=== PATIENT | female | born 1990 | race Caucasian/White ===

== ENCOUNTER 2021-06-20 13:25 | Emergency (ER) | payer SELFPAY ==
[~2021-06-20] VITALS: Ht 165.1 cm; Wt 55.3 kg
[2021-06-20 13:36] VITALS: BP 118/83
[2021-06-20] MEDS ORDERED: LORAZEPAM 0.5 MG TABLET PO ONE (14:30)
[2021-06-20] MEDS ORDERED: LORAZEPAM 0.5 MG TABLET ONE (14:31)
--- NOTE | 2021-06-20 14:32 | NUR ---
Patient eloped from facility. ER MD notified.
== END 2021-06-20 14:40 | disposition left against medical advice (07) ==
LOC: ER 13:29
DX: F41.9 Anxiety disorder, unspecified (principal); Z53.29 Procedure and treatment not carried out because of patient's decision for other reasons

== ENCOUNTER 2021-07-22 10:56 | Emergency (ER) | payer SELFPAY ==
--- NOTE | 2021-07-22 11:50 | NUR ---
PER ADMITTING, PT LEFT DOES NOT WANT TO BE SEEN ANYMORE. LEFT BEFORE BEING TRIAGED.
== END 2021-07-22 11:53 | disposition left against medical advice (07) ==
LOC: ER 10:56
DX: Z53.21 Procedure and treatment not carried out due to patient leaving prior to being seen by health care provider (principal); R07.89 Other chest pain

== ENCOUNTER 2021-07-26 09:57 | Emergency (ER) | payer SELFPAY ==
[~2021-07-26] VITALS: Ht 165.1 cm; Wt 55.3 kg
--- NOTE | 2021-07-26 10:16 | NUR ---
BIB FRIEND C/O ANXIETY ATTACK STARTED THIS MORNING. THE PATIENT IS ALERT AND ORIENTED X4. DENIES PAIN. IN ROOM AIR AND DENIES SOB. RESPIRATION REGULAR AND UNLABORED. WILL CONTINUE TO MONITOR THE PATIENT.
[2021-07-26] MEDS ORDERED: ONDANSETRON HCL/PF 4 MG/2 ML VIAL ONE (10:56)
[2021-07-26] MEDS ORDERED: LORAZEPAM INJ 2 MG/ML VIAL ONE (10:57)
[2021-07-26] MEDS: ONDANSETRON HCL/PF 4 MG/2 ML VIAL IV ONE (11:04)
[2021-07-26] MEDS: LORAZEPAM INJ 2 MG/ML VIAL IV ONE (11:04)
[2021-07-26 11:30] LABS: BASOPHILS # (AUTO) 0.1 K/uL (0.0-0.2); BASOPHILS % (AUTO) 0.5 % (0.0-2.0); EOSINOPHILS % (AUTO) 0.7 % (0.0-6.0); HEMATOCRIT 39 % (33-45); LYMPHOCYTES # (AUTO) 2.4 K/uL (0.8-4.8); LYMPHOCYTES % (AUTO) 15.3 % (20.0-44.0); MEAN CORPUSCULAR HGB CONC 34 g/dl (31.0-36.0); MEAN CORPUSCULAR VOLUME 88 fL (82-100); MONOCYTES # (AUTO) 0.8 K/uL (0.1-1.30); MONOCYTES % (AUTO) 4.8 % (2.0-12.0); NEUTROPHILS # (AUTO) 12.6 K/uL (1.8-8.9); NEUTROPHILS % (AUTO) 78.7 % (43.0-81.0); PLATELET COUNT (AUTO) 346 K/uL (150-450); RED BLOOD CELL COUNT(AUTO) 4.39 MIL/uL (4.0-5.2); WHITE BLOOD COUNT (AUTO) 16.1 K/uL (4.3-11.0)
[2021-07-26 11:34] LABS: BILIRUBIN,URINE NEGATIVE (NEGATIVE); COLOR,URINE YELLOW (YELLOW); LEUKOCYTE ESTERASE ,URINE NEGATIVE (NEGATIVE); NITRITE, URINE NEGATIVE (NEGATIVE); PH,URINE 7.5 (5.0-8.0); PROTEIN,URINE NEGATIVE (NEGATIVE); UGLUCOSE NEGATIVE (NEGATIVE); UROBILINOGEN,URINE 0.2 EU/dL (0.2)
--- NOTE | 2021-07-26 11:41 | NUR ---
Patient does not wish to proceed with medical care recommended by ( Lev ). Patient given information related to possible complications, up to and including , which could occur as a result of leaving the hospital at this time. Patient verbalizes understanding of risks involved due to leaving against medical advice. Patient has signed AMA form.IV removed. Catheter intact and site benign. Pressure and 4x4 applied to site. No bleeding noted.
[2021-07-26 11:44] VITALS: BP 132/72
[2021-07-26 11:49] LABS: BACTERIA,URINE Few /HPF (None Seen); RBC,URINE NONE SEEN /HPF (0-2); WBC,URINE 0-2 /HPF (0-3)
[2021-07-26 11:50] LABS: SQUAMOUS EPITHELIAL CELL,UR Few /HPF (None Seen)
[2021-07-26 11:51] LABS: CARBON DIOXIDE 23 mmol/L (21-32); CHLORIDE 103 mmol/L (98-107); CREATININE 0.8 mg/dL (0.6-1.3); GLUCOSE 101 mg/dL (74-106); POTASSIUM 3.3 mmol/L (3.5-5.1); SODIUM SERUM 135 mmol/L (136-145); UREA NITROGEN, BLOOD 14 mg/dL (7-18)
[2021-07-26 11:57] LABS: ACETAMINOPHEN < 2 ug/ml (10-30); ALANINE AMINOTRANSFERASE 23 U/L (12-78); ALBUMIN 4.2 g/dL (3.4-5.0); ALCOHOL, BLOOD < 3 mg/dL (0-0); ALKALINE PHOSPHATASE 88 U/L (46-116); ASPARTATE AMINOTRANSFERASE 15 U/L (15-37); BILIRUBIN,DIRECT 0.1 mg/dL (0.0-0.2); BILIRUBIN,TOTAL 0.3 mg/dL (0.2-1.0); LIPASE 66 U/L (73-393); TOTAL PROTEIN, SERUM 7.7 g/dL (6.4-8.2)
== END 2021-07-26 11:41 | disposition left against medical advice (07) ==
LOC: ER 09:59
DX: F41.9 Anxiety disorder, unspecified (principal); R11.2 Nausea with vomiting, unspecified; F12.90 Cannabis use, unspecified, uncomplicated
CPT/HCPCS: 36415; 80048; 80076; 80143; 80307; 80320; 81001; 83690; 84703; 85025; 96374; 96375; 99284; J2060; J2405; G0480

== ENCOUNTER 2021-08-02 11:48 | Emergency (ER) | payer SELFPAY ==
[~2021-08-02] VITALS: Ht 165.1 cm; Wt 55.3 kg
--- NOTE | 2021-08-02 11:48 | NUR ---
PT BIB SELF C/O ANXIETY ATTACK, NAUSEA AND VOMITING STARTED THIS MORNING. PT BEEN SEEN HERE FOR SAME CC MULTIPLE TIMES. PT IS AAOX4, NOT IN RESPIRATORY DISTRESS, V/S STABLE, KEPT RESTED AND COMFORTABLE. WILL CONTINUE TO MONITOR.
--- NOTE | 2021-08-02 12:03 | NUR ---
SEEN AND EXAMINED BY .
[2021-08-02] MEDS ORDERED: ONDANSETRON HCL/PF 4 MG/2 ML VIAL ONE (12:09)
[2021-08-02] MEDS ORDERED: LORAZEPAM INJ 2 MG/ML VIAL ONE (12:10)
--- NOTE | 2021-08-02 12:10 | NUR ---
IV LINE ESTABLISHED G18 L AC.
[2021-08-02] MEDS ORDERED: ONDANSETRON HCL/PF 4 MG/2 ML VIAL IVP ONE (12:30)
[2021-08-02] MEDS ORDERED: LORAZEPAM INJ 2 MG/ML VIAL IV ONE (12:30)
[2021-08-02] MEDS ORDERED: IV NS 0.9% 1,000 ML BAG IV ONE (12:30)
--- NOTE | 2021-08-02 13:20 | NUR ---
IV removed. Catheter intact and site benign. Pressure and 4x4 applied to site. No bleeding noted.Patient discharged to home in stable condition. Written and verbal after care instructions given. Patient verbalizes understanding of instruction.
[2021-08-02 13:24] VITALS: BP 117/68
== END 2021-08-02 13:25 | disposition home or self-care (01) ==
LOC: ER 11:50
DX: F41.9 Anxiety disorder, unspecified (principal); R11.10 Vomiting, unspecified
CPT/HCPCS: 96361; 96374; 96375; 99284; J2060; J2405; J7030

== ENCOUNTER 2021-08-08 08:16 | Emergency (ER) | payer SELFPAY ==
[~2021-08-08] VITALS: Ht 165.1 cm; Wt 55.3 kg
[2021-08-08 08:30] VITALS: BP 144/78
--- NOTE | 2021-08-08 08:30 | NUR ---
BIBS FOR C/O N/V AND FEELING ANXIOUS SINCE 0700. DENIES SI/HI. RESPIRATION REGULAR AND UNLABORED. WILL CONTINUE TO MONITOR THE PATIENT.
--- NOTE | 2021-08-08 08:36 | NUR ---
DR MUSTAFA AT THE BEDSIDE
[2021-08-08] MEDS ORDERED: diphenhydrAMINE HCL 50 MG/ML VIAL ONE (08:40)
[2021-08-08] MEDS ORDERED: diphenhydrAMINE HCL 50 MG/ML VIAL IM ONE (09:00)
--- NOTE | 2021-08-08 09:00 | NUR ---
Patient eloped from facility. Dr Kyle aware.
== END 2021-08-08 09:01 | disposition left against medical advice (07) ==
LOC: ER 08:47
DX: F41.9 Anxiety disorder, unspecified (principal); Z88.8 Allergy status to other drugs, medicaments and biological substances
CPT/HCPCS: 96372; 99283; J1200

== ENCOUNTER 2021-08-14 09:49 | Emergency (ER) | payer BC ==
[~2021-08-14] VITALS: Ht 165.1 cm; Wt 55.8 kg
--- NOTE | 2021-08-14 10:00 | NUR ---
BIBS C/O NAUSEA AND VOMITING, ABDOMINAL CRAMPING SINCE YESTERDAY. ANXIOUS BONE CHAR KILN TENDER. VITALS ARE WITHIN NORMAL LIMITS. BREATHING IS EVEN AND UNLABORED. WAITING FOR MD DE LUNA.
--- NOTE | 2021-08-14 10:02 | NUR ---
DR MUSTAFA AT BEDSIDE
--- NOTE | 2021-08-14 10:05 | NUR ---
PT ELOPED AFTER BEING SEEN BY MD. PT LEFT WALKING IN STABLE CONDITION.
--- NOTE | 2021-08-14 10:05 | NUR ---
Shekhar rueda in ED - 08/14/21 at 1014 by GINNY PT ELOPED AFTER BEING SEEN BY MD.
[2021-08-14 10:14] VITALS: BP 104/60
== END 2021-08-14 10:14 | disposition left against medical advice (07) ==
LOC: ER 09:50
DX: F41.9 Anxiety disorder, unspecified (principal); Z88.8 Allergy status to other drugs, medicaments and biological substances